=== PATIENT | male | born 1960 | race Caucasian/White ===

== ENCOUNTER 2024-06-25 19:43 | Emergency (ER) | payer SELFPAY ==
[2024-06-25] MEDS ORDERED: Lidocaine 2% 5 ML SDV INFILT ONE (19:44)
[2024-06-25] MEDS: Diphtheria,Pertussis(Acell),Tetanus Vaccine 0.5 ML Syringe IM ONE (20:16)
== END 2024-06-25 20:35 | disposition home or self-care (01) ==
LOC: FB.ED 19:43
DX: S61.412A Laceration without foreign body of left hand, initial encounter (principal); W29.8XXA Contact with other powered hand tools and household machinery, initial encounter
CPT/HCPCS: 12002; 90471; 90715; 99282-25